=== PATIENT | male | born 2000 | race Caucasian/White ===

== ENCOUNTER 2020-12-19 21:07 | Emergency (ER) | payer OTHER, BC, MEDICAID ==
--- NOTE | 2020-12-19 21:42 | EDM.PDOC ---
ED HPI GENERAL MEDICAL PROBLEM - General Stated Complaint: kamron Time Seen by Provider: 12/19/20 21:15 Source of Information: Reports: Patient History Limitations: Reports: No Limitations - History of Present Illness INITIAL COMMENTS - FREE TEXT/NARRATIVE: Patient presented to the ED because of brief episode of seizure while at work([employer]). It lasted for less than a minute. A co worker noticed him clenched arms,UE jerking and fell on the ground but there was no LOC. No post ictal headache or confusion. Patient had N/V/D for 2 days which has resolved today. - Related Data Allergies Allergy/AdvReac Type Severity Reaction Status Date / Time No Known Allergies Allergy Verified 12/19/20 21:43 Home Meds: Home Meds NK [No Known Home Meds] 12/19/20 [History] ED ROS GENERAL - Review of Systems Review Of Systems: See Below Constitutional: Reports: No Symptoms HEENT: Reports: No Symptoms Respiratory: Reports: No Symptoms Cardiovascular: Reports: No Symptoms Endocrine: Reports: No Symptoms GI/Abdominal: Reports: No Symptoms : Reports: No Symptoms Musculoskeletal: Reports: No Symptoms Skin: Reports: No Symptoms Neurological: Reports: Seizure Psychiatric: Reports: No Symptoms Hematologic/Lymphatic: Reports: No Symptoms ED EXAM, NEURO - Physical Exam Exam: See Below Exam Limited By: No Limitations General Appearance: Alert, No Apparent Distress Ears: Normal External Exam, Normal Canal Nose: Normal Inspection, Normal Mucosa Throat/Mouth: Normal Inspection, Normal Lips, Normal Teeth Head Exam: Atraumatic, Normocephalic Neck: Normal Inspection, Supple, Non-Tender, Full Range of Motion Respiratory/Chest: No Respiratory Distress, Lungs Clear, Normal Breath Sounds Cardiovascular: Normal Peripheral Pulses, Regular Rate, Rhythm, No Edema, No Gallop GI/Abdominal: Normal Bowel Sounds, Soft, Non-Tender, No Organomegaly Neurological: Alert, Normal Mood/Affect, Normal Dorsiflexion #1 Interpretation EKG Date: 12/19/20 Time: 21:26 Rhythm: NSR Rate (Beats/Min): 55 Haines: Normal P-Wave: Present QRS: Normal ST-T: Normal QT: Normal EKG Interpretation Comments: NSR Early Repolarization Course - Vital Signs Text/Narrative:: Lab/EKG/CT result was reviewed and discussed with patient - Orders/Labs/Meds Orders: Active Orders 24 hr Category Date Time Status EKG Documentation Completion [RC] ASDIRECTED Care 12/19/20 21:26 Active Head wo Cont [CT] Stat Exams 12/19/20 21:25 Taken EKG 12 Lead [EK] Routine Ther 12/19/20 21:25 Ordered Labs: Laboratory Tests 12/19/20 12/19/20 12/19/20 Range/Units 21:19 21:19 21:19 WBC 8.0 (3.2-10.1) x10-3/uL RBC 4.74 (3.90-5.90) x10(6)uL Hgb 15.6 (12.9-17.7) g/dL Hct 45.3 (38.3-50.1) % MCV 95.5 (80.8-98.7) fL MCH 33.0 (27.0-33.3) pg MCHC 34.6 (28.7-35.3) g/dL RDW 12.7 (12.4-15.0) % Plt Count 205 (117-477) x10(3)uL MPV 9.1 (6.7-11.0) fL Neut % (Auto) 57.1 (40.3-71.8) % Lymph % (Auto) 33.1 (15.8-45.3) % Andrews % (Auto) 8.9 (5.5-15.2) % Eos % (Auto) 0.5 (0.1-6.8) % Baso % (Auto) 0.4 (0.3-3.8) % Neut # (Auto) 4.5 (1.7-6.9) x10-3/uL Lymph # (Auto) 2.6 (0.5-4.5) x10-3/uL Andrews # (Auto) 0.7 (0.0-1.2) x10-3/uL Eos # (Auto) 0.0 (0.0-0.6) x10-3/uL Baso # (Auto) 0.0 (0.0-0.3) x10-3/uL Sodium 144 (135-145) mmol/L Potassium 3.6 (3.5-5.3) mmol/L Chloride 101 (100-110) mmol/L Carbon Dioxide 30 (21-32) mmol/L BUN 14 (7-18) mg/dL Creatinine 1.3 (0.70-1.30) mg/dL Est Cr Clr Drug Dosing TNP Estimated GFR (MDRD) > 60 (>60) BUN/Creatinine Ratio 10.8 (9-20) Glucose 140 H (80-116) mg/dL Calcium 9.6 (8.6-10.2) mg/dL Total Bilirubin 0.8 (0.1-1.3) mg/dL AST 19 (5-25) IU/L ALT 29 (12-36) U/L Alkaline Phosphatase 60 (56-112) IU/L Troponin I (4.0-60.3) pg/mL Total Protein 8.8 H (6.0-8.0) g/dL Albumin 4.8 (3.5-5.2) g/dL Globulin 4.0 g/dL Albumin/Globulin Ratio 1.2 Urine Opiates Screen (NEGATIVE) Ur Oxycodone Screen (NEGATIVE) Ur Propoxyphene Screen (NEGATIVE) Ur Barbituates Screen (NEGATIVE) Ur Tricyclics Screen (NEGATIVE) Ur Phencyclidine Scrn (NEGATIVE) Ur Amphetamine Screen (NEGATIVE) Urine MDMA Screen (NEGATIVE) U Benzodiazepines Scrn (NEGATIVE) U Cocaine Metab Screen (NEGATIVE) U Marijuana (THC) Screen (NEGATIVE) Ethyl Alcohol < 0.03 (<0.03) % 12/19/20 12/19/20 Range/Units 21:19 22:00 WBC (3.2-10.1) x10-3/uL RBC (3.90-5.90) x10(6)uL Hgb (12.9-17.7) g/dL Hct (38.3-50.1) % MCV (80.8-98.7) fL MCH (27.0-33.3) pg MCHC (28.7-35.3) g/dL RDW (12.4-15.0) % Plt Count (117-477) x10(3)uL MPV (6.7-11.0) fL Neut % (Auto) (40.3-71.8) % Lymph % (Auto) (15.8-45.3) % Andrews % (Auto) (5.5-15.2) % Eos % (Auto) (0.1-6.8) % Baso % (Auto) (0.3-3.8) % Neut # (Auto) (1.7-6.9) x10-3/uL Lymph # (Auto) (0.5-4.5) x10-3/uL Andrews # (Auto) (0.0-1.2) x10-3/uL Eos # (Auto) (0.0-0.6) x10-3/uL Baso # (Auto) (0.0-0.3) x10-3/uL Sodium (135-145) mmol/L Potassium (3.5-5.3) mmol/L Chloride (100-110) mmol/L Carbon Dioxide (21-32) mmol/L BUN (7-18) mg/dL Creatinine (0.70-1.30) mg/dL Est Cr Clr Drug Dosing Estimated GFR (MDRD) (>60) BUN/Creatinine Ratio (9-20) Glucose (80-116) mg/dL Calcium (8.6-10.2) mg/dL Total Bilirubin (0.1-1.3) mg/dL AST (5-25) IU/L ALT (12-36) U/L Alkaline Phosphatase (56-112) IU/L Troponin I < 4.0 L (4.0-60.3) pg/mL Total Protein (6.0-8.0) g/dL Albumin (3.5-5.2) g/dL Globulin g/dL Albumin/Globulin Ratio Urine Opiates Screen Negative (NEGATIVE) Ur Oxycodone Screen Negative (NEGATIVE) Ur Propoxyphene Screen Negative (NEGATIVE) Ur Barbituates Screen Negative (NEGATIVE) Ur Tricyclics Screen Negative (NEGATIVE) Ur Phencyclidine Scrn Negative (NEGATIVE) Ur Amphetamine Screen Negative (NEGATIVE) Urine MDMA Screen Negative (NEGATIVE) U Benzodiazepines Scrn Negative (NEGATIVE) U Cocaine Metab Screen Negative (NEGATIVE) U Marijuana (THC) Screen Positive H (NEGATIVE) Ethyl Alcohol (<0.03) % Departure - Departure Time of Disposition: 22:30 Disposition: Home, Self-Care 01 Condition: Good Clinical Impression: Seizure - Discharge Information Instructions: Seizure, Adult, [id number] Additional Instructions: Please read discharge instructions on seizure You are not officially diagnosed with seizure, it needs to be confirmed by EEG Follow up with your doctor so you can be referred to see a Neurologist(brain specialist) who will then do an EEG to confirm if you really have seizure or not - My Orders Last 24 Hours: My Active Orders 12/19/20 21:25 Head wo Cont [CT] Stat EKG 12 Lead [EK] Routine 12/19/20 21:26 EKG Documentation Completion [RC] ASDIRECTED - Assessment/Plan Last 24 Hours: My Active Orders 12/19/20 21:25 Head wo Cont [CT] Stat EKG 12 Lead [EK] Routine 12/19/20 21:26 EKG Documentation Completion [RC] ASDIRECTED
== END 2020-12-19 22:40 | disposition home or self-care (01) ==
LOC: FB.ED 21:07
DX: R56.9 Unspecified convulsions (principal)
CPT/HCPCS: 36415; 70450; 80053; 80305-QW; 80307; 84484; 85025; 93005; 93010; 99282; 99285-25